=== PATIENT | male | born 1975 | race Caucasian/White ===

== ENCOUNTER 2019-04-23 03:13 | Emergency (ER) | payer MEDICAID ==
[~2019-04-23] VITALS: Ht 167.6 cm; Wt 95.5 kg
[2019-04-23] MEDS ORDERED: NAPR250T4 PO (03:26)
[2019-04-23] MEDS ORDERED: TRAM50TA4 PO (03:26)
[2019-04-23 04:16] LABS: BASOPHILS % (AUTO) 0.7 % (0.0-2.0); EOSINOPHILS % (AUTO) 1.4 % (1.0-6.0); HEMATOCRIT 46.5 % (41-53); HEMOGLOBIN 15.5 g/dL (13.5-17.5); MEAN CORPUSCULAR HEMOGLOBIN 28.8 pg (26.0-34.0); MEAN CORPUSCULAR HGB CONC 33.3 G/dL (31.0-37.0); MEAN CORPUSCULAR VOLUME 87 fL (80-100); MONOCYTES # (AUTO) 0.7 K/uL (0.1-1.0); MONOCYTES % (AUTO) 6.9 % (2.0-9.0); NEUTROPHILS # (AUTO) 6.8 K/uL (1.8-7.7); PLATELET COUNT (AUTO) 296 K/uL (150-450); RED BLOOD CELL COUNT(AUTO) 5.37 MIL/uL (4.50-5.90)
[2019-04-23 04:30] LABS: ALANINE AMINOTRANSFERASE 39 U/L (12-78); ALBUMIN 3.6 g/dL (3.4-5.0); ALKALINE PHOSPHATASE 87 U/L (46-116); ANION GAP 8 mmol/L (8-16); ASPARTATE AMINOTRANSFERASE 21 U/L (15-37); BILIRUBIN,TOTAL 0.4 mg/dL (0.1-1.0); CALCIUM, TOTAL 9.3 mg/dL (8.8-10.5); CARBON DIOXIDE 27 mmol/L (22-29); CHLORIDE 104 mmol/L (98-107); CREATININE 1.22 mg/dL (0.60-1.30); GLOMERULAR FILTR. RATE CALC > 60 mL/min (>60); GLUCOSE,RANDOM 123 mg/dL (70-110); POTASSIUM 3.9 mmol/L (3.5-5.1); SODIUM SERUM 139 mmol/L (136-145); TOTAL PROTEIN, SERUM 7.9 g/dL (6.4-8.2)
[2019-04-23 04:37] LABS: UREA NITROGEN, BLOOD 17 mg/dL (7-18)
[2019-04-23 06:27] VITALS: BP 140/83
== END 2019-04-23 07:43 | disposition home or self-care (01) ==
LOC: EMS 03:17
DX: R07.89 Other chest pain (principal); R20.2 Paresthesia of skin; R20.0 Anesthesia of skin; F17.210 Nicotine dependence, cigarettes, uncomplicated; Z98.890 Other specified postprocedural states; Z79.899 Other long term (current) drug therapy
CPT/HCPCS: 93005